=== PATIENT | female | born 1960 | race African-American/Black ===

== ENCOUNTER 2022-11-05 08:50 | Day surgery (SDC) | payer OTHER ==
[2022-10-28 16:17] VITALS: BMI 30.7
[2022-11-05 09:53] VITALS: RESP 16
[2022-11-05] MEDS ORDERED: ACETAMINOPHEN 325 MG TABLET (FP) PO PRN (10:56)
[2022-11-05] MEDS ORDERED: LACTATED RINGERS SOLUTION 1,000 ML IV SCH (11:00)
[2022-11-05] MEDS ORDERED: PROPOFOL 20 ML ONE ×2 (11:07→11:48)
[2022-11-05] MEDS ORDERED: MIDAZOLAM HCL 2 MG/2 ML SINGLE DOSE VIAL ONE (11:08)
[2022-11-05] MEDS ORDERED: ONDANSETRON 4 MG/2 ML VIAL ONE (11:39)
[2022-11-05 12:18] VITALS: TEMP 97.5
[2022-11-05 12:41] VITALS: BP 118/72; PULSE 71
== END 2022-11-05 13:02 | disposition home or self-care (01) ==
LOC: FASU 08:50
PROVIDERS: ATTEND Orthopaedic Surgery Hand Surgery
PROC: 0JBK0ZZ Excision of Left Hand Subcutaneous Tissue and Fascia, Open Approach (ICD-10-PCS; 2022-11-05)
PROC: 0JX Subcutaneous Tissue and Fascia, Transfer (ICD-10-PCS; principal; 2022-11-05 11:38)
DX: D16.12 Benign neoplasm of short bones of left upper limb (principal); R22.32 Localized swelling, mass and lump, left upper limb
CPT/HCPCS: 88307-TC